=== PATIENT | female | born 2000 ===

== ENCOUNTER 2020-06-27 06:33 | Emergency (ER) | payer SELFPAY ==
[2020-06-27 06:40] VITALS: BP 133/94
== END 2020-06-27 06:40 | disposition left against medical advice (07) ==
LOC: ED 06:33
DX: R07.89 Other chest pain (principal); R42 Dizziness and giddiness; R11.2 Nausea with vomiting, unspecified; Z53.21 Procedure and treatment not carried out due to patient leaving prior to being seen by health care provider

== ENCOUNTER 2020-06-27 17:16 | Emergency (ER) | payer SELFPAY ==
[2020-06-27] MEDS ORDERED: ONDANSETRON 4 MG/2 ML INJ IV ONE (18:47)
[2020-06-27] MEDS ORDERED: PANTOPRAZOLE 40 MG INJ IV ONE (18:47)
[2020-06-27] MEDS ORDERED: SODIUM CHLORIDE 0.9% 1000 ML 1,000 ML IV ONE (18:47)
--- NOTE | 2020-06-27 19:31 | Emergency Department Report ---
ED General Adult HPI - General Chief complaint: Nausea/Vomiting/Diarrhea Stated complaint: CHEST PAIN/THROWING UP Time Seen by Provider: 06/27/20 18:41 Source: patient Mode of arrival: Ambulatory Limitations: No Limitations - History of Present Illness Initial comments: Patient is a 19-year-old female presents emergency room with complaints of heavy alcohol use and states that she took a mushroom approximately 3 days ago. She states that she woke up the next day and began having nausea and vomiting and was not able to tolerate p.o. intake and states that she has a burning sensation in her chest. She denies any diarrhea, abdominal pain, fever, hematochezia, melena, hematemesis, urinary symptoms, abnormal vaginal discharge. No past medical history. No allergies medications. She also endorses tobacco use. When asked how much alcohol patient drank 3 days ago, she states that she drank liquor and it "was a lot." - Related Data Previous Rx's Medication Instructions Recorded Last Taken Type Famotidine [Pepcid] 40 mg PO QHS #10 tablet 06/27/20 Unknown Rx Ondansetron [Zofran Odt] 4 mg PO Q8HR PRN #10 tab.rapdis 06/27/20 Unknown Rx cephALEXin [Keflex] 500 mg PO BID 7 Days #14 cap 06/27/20 Unknown Rx Allergies Allergy/AdvReac Type Severity Reaction Status Date / Time No Known Allergies Allergy Verified 06/27/20 18:29 ED Review of Systems ROS: Stated complaint: CHEST PAIN/THROWING UP Other details as noted in HPI Comment: All other systems reviewed and negative ED Past Medical Hx - Past Medical History Previous Medical History?: No - Surgical History Past Surgical History?: No - Social History Smoking Status: Current Every Day Smoker Substance Use Type: Alcohol, Marijuana - Medications Home Medications: Home Medications Medication Instructions Recorded Confirmed Last Taken Type Famotidine [Pepcid] 40 mg PO QHS #10 tablet 06/27/20 Unknown Rx Ondansetron [Zofran Odt] 4 mg PO Q8HR PRN #10 tab.rapdis 06/27/20 Unknown Rx cephALEXin [Keflex] 500 mg PO BID 7 Days #14 cap 06/27/20 Unknown Rx ED Physical Exam - General Limitations: No Limitations General appearance: alert, in no apparent distress - Head Head exam: Present: atraumatic, normocephalic - Eye Eye exam: Present: normal appearance - ENT ENT exam: Present: mucous membranes moist - Respiratory Respiratory exam: Present: normal lung sounds bilaterally. Absent: respiratory distress, wheezes, rales, rhonchi, stridor, chest wall tenderness, accessory muscle use, decreased breath sounds, prolonged expiratory - Cardiovascular Cardiovascular Exam: Present: regular rate, normal rhythm, normal heart sounds. Absent: systolic murmur, diastolic murmur, rubs, gallop - GI/Abdominal GI/Abdominal exam: Present: soft, normal bowel sounds. Absent: distended, tende rness, rebound, rigid - Neurological Exam Neurological exam: Present: alert, oriented X3 - Psychiatric Psychiatric exam: Present: normal affect, normal mood - Skin Skin exam: Present: warm, dry, intact ED Course Vital Signs 06/27/20 06/27/20 18:28 21:30 Temperature 98.0 F Pulse Rate 68 60 Respiratory 18 16 Rate Blood Pressure 142/100 Blood Pressure 149/88 [Right] O2 Sat by Pulse 100 100 Oximetry ED Medical Decision Making - Lab Data Result diagrams: 06/27/20 19:16 06/27/20 19:16 Lab Results 06/27/20 06/27/20 06/27/20 Range/Units 19:16 19:16 19:48 WBC 8.2 (4.5-11.0) K/mm3 RBC 5.40 H (3.65-5.03) M/mm3 Hgb 15.0 H (10.1-14.3) gm/dl Hct 44.7 H (30.3-42.9) % MCV 83 (79-97) fl MCH 28 (28-32) pg MCHC 34 (30-34) % RDW 16.2 H (13.2-15.2) % Plt Count 424 (140-440) K/mm3 Lymph % (Auto) 23.5 (13.4-35.0) % [place] % (Auto) 10.4 H (0.0-7.3) % Eos % (Auto) 0.2 (0.0-4.3) % Baso % (Auto) 0.4 (0.0-1.8) % Lymph # (Auto) 1.9 (1.2-5.4) K/mm3 [place] # (Auto) 0.9 H (0.0-0.8) K/mm3 Eos # (Auto) 0.0 (0.0-0.4) K/mm3 Baso # (Auto) 0.0 (0.0-0.1) K/mm3 Seg Neutrophils % 65.5 (40.0-70.0) % Seg Neutrophils # 5.4 (1.8-7.7) K/mm3 Sodium 133 L (137-145) mmol/L Potassium 3.4 L (3.6-5.0) mmol/L Chloride 95.4 L (98-107) mmol/L Carbon Dioxide 20 L (22-30) mmol/L Anion Gap 21 mmol/L BUN 20 H (7-17) mg/dL Creatinine 0.8 (0.6-1.2) mg/dL Estimated GFR > 60 ml/min BUN/Creatinine Ratio 25 % Glucose 84 (65-100) mg/dL Calcium 9.9 (8.4-10.2) mg/dL Total Bilirubin 0.80 (0.1-1.2) mg/dL AST 20 (5-40) units/L ALT 13 (7-56) units/L Alkaline Phosphatase 93 (35-129) units/L Total Protein 8.9 H (6.3-8.2) g/dL Albumin 4.7 (3.9-5) g/dL Albumin/Globulin Ratio 1.1 % Lipase 51 (13-60) units/L Urine Color [place]ph[place] (Yellow) Urine Turbidity Cloudy (Clear) Urine pH 6.0 (5.0-7.0) Ur Specific [place] 1.028 (1.003-1.030) Urine Protein >500 (Negative) mg/dL Urine Glucose (UA) Neg (Negative) mg/dL Urine Ketones 80 (Negative) mg/dL Urine Blood Mod (Negative) Urine Nitrite Neg (Negative) Ur Reducing Substances Not Reportable Urine Bilirubin Neg (Negative) Urine Ictotest Not Reportable Urine Urobilinogen 2.0 (<2.0) mg/dL Ur Leukocyte Esterase Sm (Negative) Urine WBC (Auto) 107.0 H (0.0-6.0) /HPF Urine RBC (Auto) 28.0 (0.0-6.0) /HPF U Epithel Cells (Auto) 38.0 H (0-13.0) /HPF Urine Mucus 3+ /HPF Urine HCG, Qual Negative (Negative) Urine Opiates Screen Urine Methadone Screen Ur Barbiturates Screen Ur Phencyclidine Scrn Ur Amphetamines Screen U Benzodiazepines Scrn Urine Cocaine Screen U Marijuana (THC) Screen Drugs of Abuse Note 06/27/20 Range/Units 19:48 WBC (4.5-11.0) K/mm3 RBC (3.65-5.03) M/mm3 Hgb (10.1-14.3) gm/dl Hct (30.3-42.9) % MCV (79-97) fl MCH (28-32) pg MCHC (30-34) % RDW (13.2-15.2) % Plt Count (140-440) K/mm3 Lymph % (Auto) (13.4-35.0) % [place] % (Auto) (0.0-7.3) % Eos % (Auto) (0.0-4.3) % Baso % (Auto) (0.0-1.8) % Lymph # (Auto) (1.2-5.4) K/mm3 [place] # (Auto) (0.0-0.8) K/mm3 Eos # (Auto) (0.0-0.4) K/mm3 Baso # (Auto) (0.0-0.1) K/mm3 Seg Neutrophils % (40.0-70.0) % Seg Neutrophils # (1.8-7.7) K/mm3 Sodium (137-145) mmol/L Potassium (3.6-5.0) mmol/L Chloride (98-107) mmol/L Carbon Dioxide (22-30) mmol/L Anion Gap mmol/L BUN (7-17) mg/dL Creatinine (0.6-1.2) mg/dL Estimated GFR ml/min BUN/Creatinine Ratio % Glucose (65-100) mg/dL Calcium (8.4-10.2) mg/dL Total Bilirubin (0.1-1.2) mg/dL AST (5-40) units/L ALT (7-56) units/L Alkaline Phosphatase (35-129) units/L Total Protein (6.3-8.2) g/dL Albumin (3.9-5) g/dL Albumin/Globulin Ratio % Lipase (13-60) units/L Urine Color (Yellow) Urine Turbidity (Clear) Urine pH (5.0-7.0) Ur Specific [place] (1.003-1.030) Urine Protein (Negative) mg/dL Urine Glucose (UA) (Negative) mg/dL Urine Ketones (Negative) mg/dL Urine Blood (Negative) Urine Nitrite (Negative) Ur Reducing Substances Urine Bilirubin (Negative) Urine Ictotest Urine Urobilinogen (<2.0) mg/dL Ur Leukocyte Esterase (Negative) Urine WBC (Auto) (0.0-6.0) /HPF Urine RBC (Auto) (0.0-6.0) /HPF U Epithel Cells (Auto) (0-13.0) /HPF Urine Mucus /HPF Urine HCG, Qual (Negative) Urine Opiates Screen Negative Urine Methadone Screen Negative Ur Barbiturates Screen Negative Ur Phencyclidine Scrn Negative Ur Amphetamines Screen Negative U Benzodiazepines Scrn Negative Urine Cocaine Screen Negative U Marijuana (THC) Screen Positive Drugs of Abuse Note Disclamer Vital Signs 06/27/20 06/27/20 18:28 21:30 Temperature 98.0 F Pulse Rate 68 60 Respiratory 18 16 Rate Blood Pressure 142/100 Blood Pressure 149/88 [Right] O2 Sat by Pulse 100 100 Oximetry - EKG Data EKG shows normal: sinus rhythm, axis, intervals Rate: bradycardia (58 bpm) - EKG Data 06/28/20 01:[address] elevation could represent early repolarization Do not suspect acute pericarditis, no significant HI depression and patient symptoms do not correlate No STEMI - Medical Decision Making Patient is a 19-year-old female presents emergency room with complaints of heavy alcohol use and states that she took a mushroom approximately 3 days ago. She states that she woke up the next day and began having nausea and vomiting and was not able to tolerate p.o. intake and states that she has a burning sensation in her chest. She denies any diarrhea, abdominal pain, fever, hematochezia, melena, hematemesis, urinary symptoms, abnormal vaginal discharge. No past medical history. No allergies medications. She also endorses tobacco use. When asked how much alcohol patient drank 3 days ago, she states that she drank liquor and it "was a lot." No abdominal tenderness on exam, no guarding, no rebound, no rigidity, normal bowel sounds, no peritoneal signs. Labs with very mild dehydration with very mild hypokalemia. UA shows evidence of UTI, could be secondary to contamination given many epithelial cells, will cover with Keflex. UDS is positive for marijuana. Symptoms likely related to patient's drug and alcohol use. Discussed the importance of follow-up for reexamination. Discussed return precautions. Discussed cessation with patient. Patient given IV medications on the emergency department she is feeling much better and ready to go home. Patient was able to tolerate p.o. intake. Patient given prescription for Zofran, Pepcid, Keflex. Advised patient Please take medication as prescribed. Increase your water intake. Avoid alcohol and drug use. Follow-up with a primary care doctor. Return to emergency room for new or wo rsening symptoms. Critical care attestation.: If time is entered above; I have spent that time in minutes in the direct care of this critically ill patient, excluding procedure time. ED Disposition Clinical Impression: Dehydration, Hypokalemia GERD (gastroesophageal reflux disease) Qualifiers: Esophagitis presence: without esophagitis Qualified Code(s): K21.9 - Gastro- esophageal reflux disease without esophagitis Nausea & vomiting Qualifiers: Vomiting type: unspecified Vomiting Intractability: non-intractable Qualified Code(s): R11.2 - Nausea with vomiting, unspecified UTI (urinary tract infection) Qualifiers: Urinary tract infection type: acute cystitis Hematuria presence: with hematuria Qualified Code(s): N30.01 - Acute cystitis with hematuria Disposition: TO HOME OR SELFCARE Is pt being admited?: No Does the pt Need Aspirin: No Condition: Stable Instructions: Heartburn, [id number], Urinary Tract Infection, Adult, [id number], Nausea and Vomiting, Adult Additional Instructions: Please take medication as prescribed. Increase your water intake. Avoid alcohol and drug use. Follow-up with a primary care doctor. Return to emergency room for new or worsening symptoms. Prescriptions: Famotidine [Pepcid] 40 mg PO QHS #10 tablet cephALEXin [Keflex] 500 mg PO BID 7 Days #14 cap Ondansetron [Zofran Odt] 4 mg PO Q8HR PRN #10 tab.rapdis PRN Reason: nausea/vomiting Referrals: PRIMARY CARE, [Primary Care Provider] - 2-3 Days Time of Disposition: 20:29 Print Language: ROMANIAN
[2020-06-27 19:57] LABS: Basophils % (Auto) 0.4 % (0.0-1.8); Eosinophils % (Auto) 0.2 % (0.0-4.3); Hematocrit 44.7 % (30.3-42.9); Lymphocytes # (Auto) 1.9 K/mm3 (1.2-5.4); Lymphocytes % (Auto) 23.5 % (13.4-35.0); Mean Corpuscular HGB Conc 34 % (30-34); Mean Corpuscular Volume 83 fl (79-97); Monocytes # (Auto) 0.9 K/mm3 (0.0-0.8); Monocytes % (Auto) 10.4 % (0.0-7.3); Platelet Count 424 K/mm3 (140-440); Red Cell Distribution Width 16.2 % (13.2-15.2)
[2020-06-27 19:57] LABS: HCG Qualitative,Urine Negative (Negative)
[2020-06-27 19:59] LABS: Mucus,Urine 3+ /HPF
[2020-06-27 20:02] LABS: Bilirubin,Urine NEG (Negative); Blood,Urine MOD (Negative); Color,Urine Amber (Yellow)
[2020-06-27 20:04] LABS: Protein,Urine >500 mg/dL (Negative)
[2020-06-27 20:14] LABS: Amphetamine Screen,Urine Negative; Benzodiazepines Screen,Urine Negative; Cocaine Screen,Urine Negative; Methadone Screen,Urine Negative; Opiate Screen,Urine Negative
[2020-06-27 20:20] LABS: Alanine Aminotransferase 13 units/L (7-56); Albumin 4.7 g/dL (3.9-5); BUN/Creatinine Ratio 25; Blood Urea Nitrogen 20 mg/dL (7-17); Calcium 9.9 mg/dL (8.4-10.2); Hemolysis Index 18
[2020-06-27] MEDS ORDERED: POTASSIUM CHLORIDE ER 20 MEQ TAB PO ONE (20:22)
[2020-06-27 20:25] LABS: Cannabinoid Screen,Urine Positive
[2020-06-27] MEDS ORDERED: METOCLOPRAMIDE 10 MG/2 ML INJ IV ONE (20:36)
[2020-06-27] MEDS ORDERED: diphenhydrAMINE 50 MG/ML VIAL IV ONE (20:36)
[2020-06-27 23:36] VITALS: BP 149/88
--- NOTE | 2020-06-28 18:43 | Electrocardiograph Report ---
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 No previous ECG available for comparison Electronically Signed On 06-28-2020 18:43:13 EDT by Romie Arreola
== END 2020-06-27 21:30 | disposition home or self-care (01) ==
LOC: ED 17:16
DX: N39.0 Urinary tract infection, site not specified (principal); K21.9 Gastro-esophageal reflux disease without esophagitis; R11.2 Nausea with vomiting, unspecified; E86.0 Dehydration; E87.6 Hypokalemia; F17.200 Nicotine dependence, unspecified, uncomplicated; F12.10 Cannabis abuse, uncomplicated; Z79.899 Other long term (current) drug therapy
CPT/HCPCS: 36415; 80053; 80307; 81001; 81025; 83690; 85025; 87086; 93005; 96361; 96374; 96375; 99283; C9113; J1200; J2405; J2765; J7030

== ENCOUNTER 2020-08-27 14:37 | Emergency (ER) | payer SELFPAY | END 2020-08-28 03:00 | disposition left against medical advice (07) | LOC: ED 14:37 | DX: O26.899 Other specified pregnancy related conditions, unspecified trimester (principal); Z3A.00 Weeks of gestation of pregnancy not specified ==